=== PATIENT | male | born 1965 | race Two or more races ===

== ENCOUNTER 2024-09-27 15:07 | Emergency (ER) | payer OTHER, SELFPAY ==
--- NOTE | ~2024-09-27 | XR_ITS ---
EXAMINATION: XR CHEST CLINICAL INFORMATION: pain COMPARISON: None available. TECHNIQUE: 2 views of the chest were obtained. FINDINGS: The cardiac, hilar, and mediastinal contours are normal. The lungs are clear bilaterally. There is no pneumothorax or pleural effusion. There is no focal osseous or soft tissue abnormality. There are spinal degenerative changes. XR/XR chest 2V IMPRESSION: No active pulmonary disease. Electronically signed by: Lester Auguste MD 09/27/2024 03:35 PM EDT
--- NOTE | 2024-09-27 15:09 | ECG_ITS ---
Test Reason : cp Blood Pressure : */* mmHG Vent. Rate : 72 BPM Atrial Rate : 72 BPM P-R Int : 160 ms QRS Dur : 86 ms QT Int : 380 ms P-R-T Axes : 27 49 54 degrees QTcB Int : 416 ms Normal sinus rhythm Nonspecific T wave abnormality Abnormal ECG When compared with ECG of 06-Nov-2011 11:15, No significant change was found Referred By: Guzman Ivan Electronically Signed By: OPHELIA VELASQUEZ MD
--- NOTE | 2024-09-27 15:16 | ED_ITS ---
HPI - General Adult General Chief complaint: Chest Pain Stated complaint: Chest Pain Time Seen by Provider: 09/27/24 15:59 History of Present Illness ED Provider: Kartik HOUGH narrative: Patient is a 59-year-old male. He has a history of hypertension and type 2 diabetes. He takes losartan and metformin. He lives in [place]. He comes to the emergency room today for evaluation of pain in his left chest and left shoulder. He started experiencing these symptoms yesterday afternoon. He says that he had about 3 episodes of discomfort in his left chest and left shoulder that lasted about 20 minutes each. He says he did not have any symptoms during the night but this afternoon at around 2 PM he started to experience the symptoms again and he felt that it was radiating to his left shoulder blade. At that point his partner insisted he come to the hospital. She drove him to the hospital. The patient says that he was doing nothing exertional yesterday when his symptoms began. He was cooking. He says that he has been smoking some marijuana. The patient says that he was doing nothing exertional today when his symptoms began. His partner gave him a tablet of lorazepam after his symptoms began in route to the hospital. She thought that perhaps he was feeling anxious. The patient currently feels the discomfort somewhat in his left shoulder. It is somewhat worse when he moves the shoulder. He says that he did do some heavy lifting recently. The patient has a history of a cholecystectomy. He says that the pain he has experienced that brought him here today is not similar to the pain he had with his gallbladder problems prior to his cholecystectomy. The patient says that he has not taken his metformin for a few weeks. However he says he has taken his blood pressure medication. He is on valsartan. The patient says that he has done some heavy lifting in the last few days. Related Data Previous Rx's ?Medication ?Instructions ?Recorded metformin 500 mg tablet 500 mg PO BID #14 tabs 09/27/24 Allergies Allergy/AdvReac Type Severity Reaction Status Date / Time No Known Allergies Allergy Verified 09/27/24 15:20 Review of Systems 2 Review of Systems: Yes all other systems are reviewed and are negative PMFSH Social History Social History Smoked in Last 30 Days: No Use of substances other than those prescribed or required for medical reasons: Yes Substance Use Type: Marijuana Advance Directives: No Advance Directives Information Provided: No Do you have a plan to hurt others: No Plan Physical Exam ED Vital Signs: Vital Signs - 24 hr 09/27/24 15:17 09/27/24 16:09 09/27/24 16:30 Temperature 97.8 F Pulse Rate 69 74 756 H Respiratory Rate 18 18 18 Blood Pressure 155/97 H 163/103 H Pulse Oximetry 98 Oxygen Delivery Method Room Air 09/27/24 18:11 Temperature 0 F L Pulse Rate 74 Respiratory Rate 18 Blood Pressure 170/105 H Pulse Oximetry 96 Oxygen Delivery Method Room Air BMI result Body Mass Index 34.2 Const Other: The patient is a large, muscular 59-year-old male who was awake and alert. He is pleasant and cooperative. He has not appear in acute distress. HENMT Other: Face is symmetrical, mucous membranes moist Eyes General: appearance normal, both eyes and all related structures Neck Neck: Yes full ROM, Yes no lymphadenopathy and Yes no JVD Resp Effort & Inspection: normal respiratory effort Auscultation: clear to auscultation bilaterally Cardio Rate: regular rate Rhythm: regular rhythm Heart sounds: S1 normal heart sound present and S2 normal heart sound present GI Other: The abdomen is soft and nontender. Specifically there is no right upper quadrant tenderness. Skin Other: Skin is dry and unremarkable Neuro Other: The patient is awake and alert with a normal mental status. Cranial nerves are grossly intact. He moves his extremities normally and appropriately. Extrem Other: No calf swelling or tenderness, no peripheral edema. The patient has a mild generalized tenderness to the musculature of the left shoulder. Course Course Course Narrative: RME, this is a rapid medical exam performed by Domenic Ivan please refer to primary provider for complete H&P- 59 year old male presents for evaluation of left sided chest pain and shortness of breath since last night. He reports that the pain radiates to his left shoulder blade. Plan for cardiac workup Medications Administered Discontinued Medications Generic Name Dose Route Start Last Admin Trade Name Freq PRN Reason Stop Dose Admin Acetaminophen 975 mg 09/27/24 16:08 09/27/24 16:28 Acetaminophen 325 Mg Tablet PO 09/27/24 16:09 975 mg ONCE ONE Administration Sodium Chloride 1,000 mls @ 999 mls/hr 09/27/24 16:15 09/27/24 17:59 Ns IV 09/27/24 17:15 Infused .Q1H1M TRACEY Infusion Ketorolac Tromethamine 10 mg 09/27/24 16:08 09/27/24 16:27 Ketorolac Tromethamine 15 Mg/Ml Vial IVPUSH 09/27/24 16:09 10 mg ONCE ONE Administration Medical Decision Making Medical Decision Making [facility] Narrative: The patient is a 59-year-old male with a history of type 2 diabetes and hypertension who presents to the emergency room for evaluation of intermittent chest pain that began yesterday afternoon. He has had several episodes of left chest pain radiating into the left shoulder. On physical exam the patient looks well but he has some tenderness in the region of the left shoulder. Exam is otherwise very benign. EKG is unchanged since 2011. Troponins are flat. I think an acute coronary syndrome is unlikely. D-dimer is normal. I think a pulmonary embolism is unlikely. The patient has some minimally abnormal transaminases. He has had a cholecystectomy and he has no right upper quadrant tenderness. I do not think he has choledocholithiasis. The patient has some tenderness in the region of the left shoulder and he had to do some heavy lifting in the last couple of days. I suspect this is probably muscular pain. The patient is hyperglycemic. He has been off his metformin for a few weeks. He was given 1 L of IV fluids to help bring down his blood sugar. I will write a prescription for his metformin because he ran out of his previous metformin. He has an appointment with his regular doctor on Friday of this week, in 4 days. I think he is safe for discharge to follow up with his regular doctor. He says that he has his blood pressure medications. Lab Data 09/27/24 15:22 09/27/24 15:22 Labs: Lab Results 09/27/24 09/27/24 09/27/24 Range/Units 15:22 16:29 17:18 WBC 5.9 (4.8-10.8) X10*3/uL RBC 5.38 (4.60-5.80) X10*6/uL Hgb 16.9 (14.0-18.0) g/dl Hct 45.7 (42.0-52.0) % MCV 84.9 (80.0-98.0) fL MCH 31.4 (27.0-33.0) pg MCHC 37.0 H (31.0-36.0) g/dl RDW 11.9 (11.0-16.0) % Plt Count 165 (160-400) X10*3/uL MPV 9.8 (9.4-12.4) fL Immature Gran % (Auto) 0.5 H (0.0-0.4) % Neut % (Auto) 48.5 (45-73) % Lymph % (Auto) 38.2 (20-40) % [place] % (Auto) 7.0 (2-11) % Eos % (Auto) 5.1 H (0-4) % Baso % (Auto) 0.7 (0-2) % Lymph # (Auto) 2.2 (1.2-4.9) X10*3/uL [place] # (Auto) 0.4 (0.1-1.2) X10*3/uL Eos # (Auto) 0.3 (0.0-0.4) X10*3/uL Baso # (Auto) 0.0 (0.0-0.2) X10*3/uL Abs Immat Gran (auto) 0.03 (0.00-0.03) X10*3/uL Absolute Neuts (auto) 2.9 (2.0-8.3) x10*3/uL Absolute Nucleated RBC 0.000 (0.0-0.012) X10*3/uL Nucleated RBC % (auto) 0.0 (0.0-0.2) /100WBC D-Dimer High Sensitivty 226 NG/ML Sodium 132 L (135-145) mmol/L Potassium 4.5 (3.3-5.1) mmol/L Chloride 101 (96-108) mmol/L Carbon Dioxide 22 (22-29) mmol/L Anion Gap 14 (12-20) BUN 16 (9-16) mg/dL Creatinine 1.24 (0.5-1.4) mg/dL Estim Creat Clear Calc 79.9 Estimated GFR 60 Random Glucose 448 H* (60-115) mg/dL Calcium 9.6 (8.4-10.2) mg/dL Magnesium 1.9 (1.6-2.6) mg/dL Total Bilirubin 0.5 (0.0-1.0) mg/dL AST 92 H (5-37) U/L ALT 138 H (0-40) U/L Alkaline Phosphatase 92 (39-117) U/L Troponin I High Sens 7.5 8.5 (<3.5-35.0) ng/L B-Natriuretic Peptide 71 (<100) pg/mL Total Protein 7.7 (6.5-8.0) g/dL Albumin 3.7 (3.5-5.0) g/dL Lipase 56 (8-78) U/L Influenza Type A (PCR) NEGATIVE (Negative) Influenza Type B (PCR) NEGATIVE (Negative) RSV RNA Qual (PCR) NEGATIVE (Negative) SARS-CoV-2 RNA (RT-PCR) NEGATIVE (Negative) Discharge Plan Discharge Clinical Impression: Chest pain, Hyperglycemia, Type 2 diabetes mellitus, Hypertension Patient Disposition: Home, Self-Care Additional Instructions: Your testing for your chest pain is reassuring. Your chest x-ray is unremarkable. Your EKG is also unremarkable. The blood tests that we use to look for a heart attack are negative. Also a blood test that we used to look for a blood clot in your lungs is negative as well. Your blood sugar readings today are high. Please resume your metformin use. Also try to drink lot of non-sugary fluids. Please make sure you take your blood pressure medication every day as well. Please keep your appointment on Friday with your regular doctor. Return to the emergency room if you feel significantly worse. Prescriptions: New metformin 500 mg tablet 500 mg PO BID Qty: 14 0RF Referrals: Washington Valles, [Primary Care Provider] - (Chest pain, getting back on medications) Interventions: ED Discharge Assessment Last Done: 09/27/24 18:11 Discharge Date/Time: 09/27/24 18:11 Print Language: [place]
[2024-09-27 15:17] VITALS: BP 155/97; PULSE 69; RESP 18; TEMP 36.6; O2SAT 98; BMI 34.2
[2024-09-27 15:26] LABS: MANUAL DIFF FLAG NO
[2024-09-27 15:28] LABS: Basophils Percent Auto 0.7 % (0-2); Eosinophils Absolute Auto 0.3 X10*3/uL (0.0-0.4); Eosinophils Percent Auto 5.1 % (0-4); Hematocrit 45.7 % (42.0-52.0); Hemoglobin 16.9 g/dl (14.0-18.0); Imm Gran Abs Auto 0.03 X10*3/uL (0.00-0.03); Imm Gran Pct Auto 0.5 % (0.0-0.4); Lymphocytes Absolute Auto 2.2 X10*3/uL (1.2-4.9); Lymphocytes Percent Auto 38.2 % (20-40); Mean Corpuscular Hemoglobin 31.4 pg (27.0-33.0); Mean Corpuscular Volume 84.9 fL (80.0-98.0); Mean Platelet Volume 9.8 fL (9.4-12.4); Monocytes Absolute Auto 0.4 X10*3/uL (0.1-1.2); Neutrophils Absolute Auto 2.9 x10*3/uL (2.0-8.3); Neutrophils Percent Auto 48.5 % (45-73); Platelet Count 165 X10*3/uL (160-400); Red Blood Count 5.38 X10*6/uL (4.60-5.80); Red Cell Distribution Width 11.9 % (11.0-16.0); White Blood Count 5.9 X10*3/uL (4.8-10.8)
[2024-09-27 15:47] LABS: B Type Natriuretic Peptide 71 pg/mL (<100)
[2024-09-27 15:48] LABS: Troponin-I High Sensitivity 7.5 ng/L (<3.5-35.0)
[2024-09-27 15:55] LABS: Alanine Aminotransferase 138 U/L (0-40); Albumin Level 3.7 g/dL (3.5-5.0); Anion Gap 14 (12-20); Aspartate Amino Transferase 92 U/L (5-37); Bilirubin Total 0.5 mg/dL (0.0-1.0); Blood Urea Nitrogen 16 mg/dL (9-16); Calcium 9.6 mg/dL (8.4-10.2); Carbon Dioxide 22 mmol/L (22-29); Chloride 101 mmol/L (96-108); Creatinine Clr Calc Pharmacy 79.9; Estimated Glomerular Filt Rate 60; Glucose Random 448 mg/dL (60-115); Lipase 56 U/L (8-78); Magnesium 1.9 mg/dL (1.6-2.6); Potassium 4.5 mmol/L (3.3-5.1); Sodium 132 mmol/L (135-145); Total Protein 7.7 g/dL (6.5-8.0)
[2024-09-27 16:04] LABS: Influenza A PCR NEGATIVE (Negative); Influenza B PCR NEGATIVE (Negative); Resp Syncy Virus RNA Qual PCR NEGATIVE (Negative); SARS COV2 PCR INHOUSE NEGATIVE (Negative)
[2024-09-27 16:09] VITALS: PULSE 74; RESP 18
--- NOTE | 2024-09-27 16:12 | PC.NURSE ---
Pt reports left sided CP since yesterday that was intermittent for hours x 2-3 episodes. States with pain pt would feel SOB and dizzy that improved when pain subsided. Pt states heavy lifting on Friday and Friday and states pain is worse with movement and lifting arm. Denies nausea or LE swelling. NSR on tele. Breathing even/unlabored. SKin color WNL, warm and dry
[2024-09-27] MEDS: Ketorolac Tromethamine 15 MG/ML VIAL 10 MG IVPUSH (16:27)
[2024-09-27] MEDS: 0.9 % Sodium Chloride 1,000 ML 999 ML IV (16:27)
[2024-09-27] MEDS: Acetaminophen 325 MG TABLET 975 MG PO (16:28)
[2024-09-27 16:30] VITALS: BP 163/103; PULSE 756; RESP 18
[2024-09-27 16:51] LABS: D Dimer High Sensitivity 226 NG/ML
[2024-09-27 17:01] LABS: Alkaline Phosphatase 92 U/L (39-117)
[2024-09-27 17:42] LABS: Troponin-I High Sensitivity 8.5 ng/L (<3.5-35.0)
[2024-09-27 18:11] VITALS: BP 170/105; PULSE 74; RESP 18; TEMP -17.7; TEMP 0; O2SAT 96
== END 2024-09-27 18:11 | disposition home or self-care (01) ==
PROVIDERS: Physician Assistant; Emergency Provider Emergency Medicine; PCP Internal Medicine
DX: R07.9 Chest pain, unspecified (principal); E11.65 Type 2 diabetes mellitus with hyperglycemia; I10 Essential (primary) hypertension; Z03.818 Encounter for observation for suspected exposure to other biological agents ruled out
CPT/HCPCS: 0241U; 36415; 71046; 80053; 83690; 83735; 83880; 84484; 85025; 85379; 93005; 96361; 96374; 99284; 99285; J1885

== ENCOUNTER → 2024-09-27 15:09 | Outpatient (BNV) | payer OTHER, SELFPAY | PROVIDERS: Emergency Provider Emergency Medicine; PCP Internal Medicine; Visit Provider Internal Medicine Cardiovascular Disease | DX: R94.31 Abnormal electrocardiogram [ECG] [EKG] (principal) | CPT/HCPCS: 93010 ==

== ENCOUNTER → 2024-09-27 15:18 | Outpatient (BNV) | payer OTHER, SELFPAY | PROVIDERS: Emergency Provider Emergency Medicine; PCP Internal Medicine; Visit Provider Radiology Diagnostic Radiology | DX: R07.9 Chest pain, unspecified (principal) | CPT/HCPCS: 71046 ==